=== PATIENT | female | born 1950 | race Caucasian/White ===

== ENCOUNTER 2017-01-07 07:14 | Emergency (ER) | payer MEDICARE ==
[~2017-01-07] VITALS: Ht 170.2 cm; Wt 95.0 kg
[2017-01-07] MEDS ORDERED: TEMA15CA PO (07:27)
[2017-01-07] MEDS ORDERED: METO25TA35 PO (07:27)
[2017-01-07] MEDS ORDERED: LOSA50TA6 PO (07:27)
[2017-01-07] MEDS ORDERED: HYDR-879 PO (07:27)
[2017-01-07] MEDS ORDERED: DULO30CA2 PO (07:27)
[2017-01-07] MEDS ORDERED: POTA8CAP PO (07:27)
[2017-01-07] MEDS ORDERED: ASPIRIN 81 MG TABLET CHEW PO ONE (07:30)
[2017-01-07] MEDS ORDERED: ASPIRIN 81 MG TABLET CHEW ONE (07:32)
[2017-01-07 07:41] LABS: HEMATOCRIT 45.3 % (34.6-47.8); WHITE BLOOD COUNT 6.2 x10^3/uL (3.4-10)
[2017-01-07 07:54] LABS: ASPARTATE AMINO TRANSFERASE 20 U/L (15-37); BLOOD UREA NITROGEN 15 mg/dL (7-18)
[2017-01-07 07:59] LABS: IS PT STATUS REG ER OR PRE ER? YES
[2017-01-07] MEDS ORDERED: PLEASE ENTER ALLERGIES MC SCH ×2 (08:00)
[2017-01-07 08:52] VITALS: BP 131/81
== END 2017-01-07 10:12 | disposition home or self-care (01) ==
LOC: ED 07:20
DX: R94.31 Abnormal electrocardiogram [ECG] [EKG] (principal); I10 Essential (primary) hypertension; E78.00 Pure hypercholesterolemia, unspecified
CPT/HCPCS: 36415; 71010; 80053; 84484; 85025; 93005; 99285